=== PATIENT | male | born 1980 | race Caucasian/White ===

== ENCOUNTER 2022-08-29 08:31 | Emergency (ER) | payer OTHER, SELFPAY ==
[2022-08-29 08:39] VITALS: BP 140/92; PULSE 91; RESP 18; TEMP 36.9; O2SAT 92; BMI 34.0
--- NOTE | 2022-08-29 08:40 | ED.ABDPAIN ---
HPI - Abdominal Pain General Time Seen by Provider: 08:40 Date Seen: 08/29/22 Chief Complaint: Abdominal Pain Stated Complaint: ill Time Seen by Provider: 08/29/22 08:40 Source: patient, RN notes reviewed and old records reviewed Mode of arrival: ambulatory Limitations: no limitations History of Present Illness HPI narrative: Patient is a very pleasant 42-year-old gentleman with history of Humira use, hyperlipidemia and 1 function and kidney per his report who comes to the emergency room for evaluation of abdominal pain. Patient notes the onset of cold-like symptoms associated with fever on SaturdayAugust 25. Later that evening he also had some loose stools and since that time has had increasing lower abdominal discomfort. He shows this to be the area of the lower abdomen mainly on the left. He has not noticed any blood in his stools. Fevers have improved but now he states he has upper dental pain and sinus pressure and some headache behind his eyes. He notes last night he had postnasal drip which caused him to cough and this would in turn hurt his abdomen. He is tried Excedrin migraine for discomfort and he feels that this does help somewhat. He does not know of any ill contacts, has not experienced any other travel outside of [place], has not had any recent antibiotics nor has he eaten any uncooked meats or high risk foods. Patient notes that the discomfort is lower abdomen does radiate somewhat to the back. It is not associated with any dysuria hematuria. Does state that urine has been very dark. Related Data Home Medications Medication Instructions Recorded Confirmed adalimumab 40 mg/0.4 mL mg subcut 08/29/22 subcutaneous pen kit (Humira(CF) Pen) atorvastatin 20 mg tablet mg 08/29/22 lisinopril 10 mg tablet mg 08/29/22 montelukast 10 mg tablet 10 mg PO QPM 08/29/22 08/29/22 Allergies Allergy/AdvReac Type Severity Reaction Status Date / Time No Known Drug Allergies Allergy Verified 08/29/22 11:41 Review of Systems Status of ROS Reports: 10 or more systems reviewed and unremarkable except as noted in History and below Const Reports: fever, chills and fatigue ENMT Denies: throat pain, neck pain, difficulty swallowing or hoarseness Cardio Denies: chest pain, swelling of feet/ankles, lightheadedness or shortness of breath with exertion Resp Denies: shortness of breath or cough GI Reports: abdominal pain and diarrhea; Denies: nausea, vomiting, difficulty swallowing or blood in stool Denies: painful urination or urinary frequency Musculo Denies: neck pain Integ/Breast Denies: rash Neuro Reports: headache; Denies: weakness in extremities Endo Reports: fatigue [facility] Social History Smoking Status: Never smoker Do you use any of these nicotine containing products: None Second hand tobacco smoke exposure: No How often do you have a drink containing alcohol: monthly or less How often do you have six or more drinks on one occasion: Less than monthly AUDIT-C Alcohol total score: 2 Non-prescribed substance use: denies use service: No Exam Narrative: Exam Narrative: Patient is alert and oriented. No acute distress. Does meet me in the room already wearing a mask. EOM is full. Face symmetrical. Oral cavity with moist mucous membranes but no excessive saliva. Neck is supple no lymphadenopathy. Heart with regular rate and rhythm and lungs are clear bilaterally. Abdomen is soft. Tenderness noted in the suprapubic and left lower quadrant. It did bother patient with discomfort in the left lower quadrant when I would move the bed. Moving all extremities. Const: Vital Signs, click to edit/add: Vital Signs - 24 hr 08/29/22 08:39 08/29/22 11:09 08/29/22 12:53 Temperature 98.4 F 99 F Pulse Rate 85 Pulse Rate [Right Pulse Oximeter] 91 77 Respiratory Rate 18 16 18 Blood Pressure 139/79 Blood Pressure [Ri ght Upper Arm] 140/92 H 129/87 Pulse Oximetry 92 97 97 Oxygen Delivery Me thod Room Air Room Air Documenting provider has reviewed patient's vital signs: yes Course Course Hospital Course: At this time differential diagnosis does include COVID, other respiratory illness, colitis, diverticulitis, urinary tract infection, Will place IV give 1 L of normal saline. Will hold off on pain medication Toradol until creatinine is return. Will check CBC, comprehensive, CRP, urinalysis, chest x-ray, COVID/RSV/influenza. Consultations Consultation #1: Consult with . Vital Signs Vital signs: Initial Vital Signs Temperature 98.4 F 08/29/22 08:39 Temperature Source Temporal Artery Scan 08/29/22 08:39 Pulse Rate 91 08/29/22 08:39 Pulse Rhythm Regular 08/29/22 08:39 Pulse Strength 3+ Normal 08/29/22 08:39 Respiratory Rate 18 08/29/22 08:39 Blood Pressure 140/92 H 08/29/22 08:39 Blood Pressure Mean 108 H 08/29/22 08:39 Blood Pressure Position Semi-Fowlers 08/29/22 08:39 Pulse Oximetry 92 08/29/22 08:39 Oxygen Delivery Method Room Air 08/29/22 08:39 Vital Signs Temperature 98.4 F 08/29/22 08:39 Pulse Rate 91 08/29/22 08:39 Respiratory Rate 18 08/29/22 08:39 Blood Pressure 140/92 H 08/29/22 08:39 Pulse Oximetry 92 08/29/22 08:39 Oxygen Delivery Method Room Air 08/29/22 08:39 Temperature 99 F 08/29/22 12:53 Pulse Rate 77 08/29/22 12:53 Respiratory Rate 18 08/29/22 12:53 Blood Pressure 129/87 08/29/22 12:53 Pulse Oximetry 97 08/29/22 12:53 Oxygen Delivery Method Room Air 08/29/22 12:53 MDM - Abdominal Pain MDM Narrative Medical decision making narrative: 1. Respiratory infection-patient is negative for COVID/influenza/RSV. Lung sounds are clear at this time. 2. Abdominal pain-I do not think that patient's abdominal pain is related to his respiratory infection. At this time patient has narrowing of the sigmoid colon. This certainly could be diverticulitis versus colitis but there is worry about an underlying mass. I have spoken with our concerns a cool consultant [employer]. vice president [employer] (ex ). Plan is to treat him for diverticulitis with Augmentin 875 p.o. b.i.d. x7 days. He should follow up as an outpatient for colonoscopy in 3-4 weeks. I spoke to patient about this and he would prefer to go to [facility] where he already has an established relationship with Dr. Shin. He however is to return to the [facility] if he has increasing pain, inability to pass gas and the onset of new symptoms. He is agreeable to this. I also gave him medication for Zofran 4 mg ODT q.8 hours p.r.n. 10. Did offer pain medications such as Vicodin but patient declines this. 3. Disposition -home at this time. Return as needed. Medical Records Attestation: I reviewed the patient's medical records. Lab Data Attestation: I reviewed the patient's lab results. Labs: Lab Results 08/29/22 08/29/22 Range/Units 09:07 09:35 WBC 9.61 (4.50-11.00) K/uL RBC 4.95 (4.30-5.90) m/uL Hgb 14.8 (13.5-17.5) gm/dL Hct 43.9 (37.0-53.0) % MCV 89 (80-100) fL MCH 30 (26-34) pg MCHC 34 (32-36) gm/dL RDW Coeff of Eva 12.1 (11.5-15.5) % Plt Count 328 (140-440) K/uL Neut % (Auto) 76.4 H (42.0-72.0) % Lymph % (Auto) 11.7 L (20-44) % Boyd % (Auto) 11.4 H (0.0-11.0) % Eos % (Auto) 0.0 (0.0-7.0) % Baso % (Auto) 0.3 (0.0-3.0) % Neut # (Auto) 7.30 H (1.7-7.0) K/uL Lymph # (Auto) 1.10 (0.90-2.90) K/uL Boyd # (Auto) 1.10 H (0.00-0.90) K/UL Eos # (Auto) 0.00 (0.00-0.50) K/uL Baso # (Auto) 0.03 (0.00-0.30) K/uL Abs Immat Gran (auto) 0.02 (0.00-0.30) K/uL Imm/Tot Granulo (auto) 0.2 % Diff Slide Review Acceptable Review (Acceptable) Sodium 135 (135-149) mmol/L Potassium 3.8 (3.6-5.1) mmol/L Chloride 101 (96-114) mmol/L Carbon Dioxide 22 (20-32) mmol/L BUN 19 (5-24) mg/dL Creatinine 1.5 (0.5-1.5) mg/dL Estimated Creat Clear 62.84 Estimated GFR 59 ml/min Glucose 112 (60-115) mg/dL Calcium 8.8 (8.4-10.6) mg/dL Total Bilirubin 1.0 (0.1-1.5) mg/dL AST 41 H (12-35) U/L ALT 53 H (4-50) U/L Alkaline Phosphatase 86 (40-150) U/L C-Reactive Protein 6.6 H (0.5-1.0) mg/dL Total Protein 7.9 (6.0-8.3) g/dL Albumin 4.4 (3.3-5.0) g/dL Urine Color Brown A (Yellow) Urine Appearance Slightly Cloudy A (Clear) Urine pH 5.5 (5.0-8.5) Ur Specific [place] 1.025 (1.000-1.030) Urine Protein 3+ A (Negative) Urine Glucose (UA) Negative (Negative) Urine Ketones Trace A (Negative) Urine Blood 3+ A (Negative) Urine Nitrite Negative (Negative) Urine Bilirubin 1+ A (Negative) Urine Urobilinogen 2.0 A (0.2-1.0) Ur Leukocyte Esterase Negative (Negative) Urine RBC 0-2 (0-2) Urine WBC 5-10 A (0-5) Ur Squamous Epith Cells Few (None-Few) Amorphous Sediment Many A (None) Other Sediment MODERATE YEAST (None) Urine Bacteria Moderate A (None) SARS-CoV-2 (PCR) Negative SARS-CoV-2 (Negative) Influenza Type A (PCR) Negative PCR FLU A (Negative) Influenza Type B (PCR) Negative PCR FLU B (Negative) RSV (PCR) Negative PCR RSV (Negative) Imaging Data Chest x-ray: Attestation: I have reviewed the pertinent imaging results. Discharge Plan Discharge Clinical Impression: Abdominal pain Qualifiers: Abdominal location: left lower quadrant Qualified Code(s): R10.32 - Left lower quadrant pain Patient Disposition: Home, Self-Care Condition: Improved Additional Instructions: Start Augmentin which is an antibiotic for presumed infection of the colon. Zofran will also be provided for you in case you feel nauseated. Tylenol or ibuprofen as needed. Follow-up with your primary clinic to get scheduled for a colonoscopy in 3-4 weeks time with your primary clinic. This would be what is called a diagnostic colonoscopy. Return to the emergency room for vomiting, increasing fever, worsening pain and as needed. Prescriptions: No Action atorvastatin 20 mg tablet Patient Comments: [NO ORIGINAL SIG] lisinopril 10 mg tablet Patient Comments: [NO ORIGINAL SIG] montelukast 10 mg tablet 10 mg PO QPM Humira(CF) Pen 40 mg/0.4 mL pen injector kit SUBCUT Patient Comments: [NO ORIGINAL SIG] Follow Up/Referrals: Sheldon Pillai MD [Primary Care Provider] - Stand Alone Forms: [employer] Info Instructions
--- NOTE | 2022-08-29 08:56 | CRLHL7_ITS ---
For Patients: As a result of the Century Cures Act, medical imaging exams and procedure reports are released immediately into your electronic medical record. You may view this report before your referring provider. If you have questions, please contact your health care provider. INDICATION: Fever and cough. TECHNIQUE: AP portable chest. FINDINGS: Clear lungs. Normal heart size and pulmonary vascularity. Normal included skeleton. IMPRESSION: Negative chest. Dictated by Marquez Nowak MD @ 08/29/2022 9:47:23 AM (Electronically Signed)
[2022-08-29] MEDS: ONDANSETRON 2 MG/ML inj 4 MG IVP (09:34)
[2022-08-29] MEDS: 0.9 % SODIUM CHLORIDE 1000 ml 1,000 ML IV (09:34)
[2022-08-29 09:47] LABS: Appearance Urine Slightly Cloudy (Clear); Bilirubin Urine 1+ (Negative); Blood Urine 3+ (Negative); Color Urine Brown (Yellow); Glucose Urine Negative (Negative); Ketones Urine Trace (Negative); Leukocyte Esterase Urine Negative (Negative); Nitrite Urine Negative (Negative); Protein Urine 3+ (Negative); Specific Gravity Urine 1.025 (1.000-1.030); pH Urine 5.5 (5.0-8.5)
[2022-08-29 09:51] LABS: Basophils Absolute Auto 0.03 K/uL (0.00-0.30); Basophils Percent Auto 0.3 % (0.0-3.0); Hematocrit 43.9 % (37.0-53.0); Hemoglobin* 14.8 gm/dL (13.5-17.5); Immature Granulocytes Abs Auto 0.02 K/uL (0.00-0.30); Immature Granulocytes Pct Auto 0.2 %; Lymphocytes Percent Auto 11.7 % (20-44); Mean Corpuscular HGB Conc 34 gm/dL (32-36); Mean Corpuscular Hemoglobin 30 pg (26-34); Mean Corpuscular Volume 89 fL (80-100); Monocytes Percent Auto 11.4 % (0.0-11.0); Neutrophils Percent Auto 76.4 % (42.0-72.0); Platelet Count* 328 K/uL (140-440); RDW Coefficient of Variation % 12.1 % (11.5-15.5); Red Blood Count 4.95 m/uL (4.30-5.90); White Blood Count* 9.61 K/uL (4.50-11.00)
[2022-08-29 10:00] LABS: Albumin* 4.4 g/dL (3.3-5.0); Chloride* 101 mmol/L (96-114); Sodium* 135 mmol/L (135-149)
[2022-08-29 10:01] LABS: Potassium* 3.8 mmol/L (3.6-5.1)
[2022-08-29 10:01] LABS: Amorphous Sediment Urine Many; Bacteria Urine Moderate; RBC Urine 0-2 (0-2); Squamous Epithelial Cell Urine Few (None-Few)
[2022-08-29 10:02] LABS: Other Sediment Urine MODERATE YEAST
--- NOTE | 2022-08-29 10:02 | ED.NURSE ---
Pt reporting feeling less nauseated after Zofran
[2022-08-29 10:03] LABS: Alanine Aminotransferase* 53 U/L (4-50); Alkaline Phosphatase* 86 U/L (40-150); Aspartate Amino Transferase* 41 U/L (12-35); Blood Urea Nitrogen* 19 mg/dL (5-24); Carbon Dioxide* 22 mmol/L (20-32); Creatinine* 1.5 mg/dL (0.5-1.5); Est. Creatinine Clearance* 62.84; Estimated Glomerular Filt Rate 59 ml/min; Glucose* 112 mg/dL (60-115); Total Protein* 7.9 g/dL (6.0-8.3)
[2022-08-29 10:04] LABS: Calcium* 8.8 mg/dL (8.4-10.6)
[2022-08-29 10:06] LABS: C Reactive Protein* 6.6 mg/dL (0.5-1.0)
[2022-08-29 10:07] LABS: Slide Review Reflex Yes
[2022-08-29 10:13] LABS: Slide Review Acceptable Review (Acceptable)
[2022-08-29 10:28] LABS: PCR FLU A Negative PCR FLU A (Negative); PCR FLU B Negative PCR FLU B (Negative); PCR RSV Negative PCR RSV (Negative)
[2022-08-29 10:43] LABS: SARS PCR* Negative SARS-CoV-2 (Negative)
--- NOTE | 2022-08-29 11:05 | CRLHL7_ITS ---
For Patients: As a result of the Century Cures Act, medical imaging exams and procedure reports are released immediately into your electronic medical record. You may view this report before your referring provider. If you have questions, please contact your health care provider. INDICATION: Lower abdominal pain for 3 days COMPARISON: None TECHNIQUE: CT examination of the abdomen and pelvis was performed following the uneventful intravenous administration of 95 cc of Isovue 370. Thin section axial images were obtained from the lung bases through the pubic symphysis. Oral contrast was not administered. Please note that all CT scans at this facility use dose modulation, iterative reconstruction, and/or weight-based dosing when appropriate to reduce radiation dose to as low as reasonably achievable. FINDINGS: LUNG BASES: The lung bases as visualized appear normal.The heart size is normal at the lung bases. LIVER/BILIARY SYSTEM:The liver is normal in size and configuration. There is no focal mass and there is no intra- or extra hepatic biliary ductal dilatation.The gall bladder appears normal. ADRENALS: Normal KIDNEYS, URETERS and BLADDER:The right kidney is unremarkable. 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 The bladder appears normal SPLEEN:Normal appearance. PANCREAS: Appears normal. RETROPERITONEUM and MESENTERY: There is no mass, adenopathy or aortic aneurysm. GASTROINTESTINAL SYSTEM: Focal area of narrowing of the sigmoid colon. This is seen on axial image 118, coronal image 117 and sagittal image number 95. This may represent spasm. However, given the clinical history, follow-up evaluation is recommended at a clinically appropriate time. There is no evidence of mechanical obstruction. PELVIS: Partially calcified soft tissue in the prevesical space. This is of uncertain but doubtful clinical significance.. OSSEOUS STRUCTURES and ABDOMINAL WALL: There is an age-appropriate appearance of the osseous structures.No significant abdominal wall defect. OTHER: No free fluid or free air. IMPRESSION: 1. Focal area of narrowing of the sigmoid colon. No mechanical obstruction. While this may represent spasm, given the clinical history, follow up evaluation should be considered to exclude an underlying lesion. 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 3. Other nonacute appearing findings as discussed above Please note that all CT scans at this facility use dose modulation, iterative reconstruction, and/or weight-based dosing when appropriate to reduce radiation dose to as low as reasonably achievable. Dictated by Terrell Lacy MD @ 08/29/2022 12:23:14 PM (Electronically Signed)
[2022-08-29 11:09] VITALS: BP 139/79; PULSE 85; RESP 16; O2SAT 97
[2022-08-29 12:53] VITALS: BP 129/87; PULSE 77; RESP 18; TEMP 37.2; O2SAT 97
== END 2022-08-29 13:59 | disposition home or self-care (01) ==
PROVIDERS: Emergency Provider Family Medicine; PCP Family Medicine
DX: R10.32 Left lower quadrant pain (principal)
CPT/HCPCS: 36415; 71045; 74177; 80053; 81001; 85025; 86140; 87086; 87631; 99284; 99285; J2405; J7030; Q9967

== ENCOUNTER 2022-09-24 10:07 | Outpatient (CLI) | payer OTHER, SELFPAY ==
--- NOTE | 2022-09-24 12:10 | W.ANESCHARGE ---
Anesthesia Charges Start Date/Time Anesthesia Start Date: 09/24/22 Anesthesia Start Time: 11:37 Stop Date/Time Anesthesia Stop Date: 09/24/22 Anesthesia Stop Time: 12:06
== END 2022-09-24 10:08 | disposition home or self-care (01) ==
LOC: OP CLINIC 10:08
PROVIDERS: PCP Family Medicine; Visit Provider Surgery
DX: R10.32 Left lower quadrant pain (principal); K57.30 Diverticulosis of large intestine without perforation or abscess without bleeding
CPT/HCPCS: 45378; 812; J2405; J2704